=== PATIENT | female | born 1965 | race Caucasian/White ===

== ENCOUNTER 2017-03-13 03:40 | Emergency (ER) | payer SELFPAY ==
[~2017-03-13] VITALS: Ht 160 cm; Wt 73.0 kg
[2017-03-13 03:46] VITALS: Ht 160 cm; Wt 73.0 kg
--- NOTE | 2017-03-13 04:38 | ERD ---
ER Documentation Chief Complaint Chief Complaint left breast pain x 2 hours HPI Otherwise healthy 51-year-old female presents with a chief complaint of left breast pain at 2 hours. No similar symptoms in the past. Last menstrual period at times a 5-7 years ago. Denies discharge, fever, chills, aggravating or alleviating factors. Has not taken any medications to relieve the symptoms. Patient has no other complaints and describes no other associated manifestations. Nursing notes have been reviewed and are consistent with history given. ROS All systems reviewed and are negative except as per history of present illness. Allergies Allergies: Coded Allergies: No Known Drug Allergies (Verified Allergy, Unknown, 03/13/17) PMhx/Soc Medical and Surgical Hx: pt denies Medical Hx History of Surgery: Yes (breast cyst removal per pt) Anesthesia Reaction: No Hx Neurological Disorder: No Hx Respiratory Disorders: No Hx Cardiac Disorders: No Hx Psychiatric Problems: No Hx Miscellaneous Medical Probl: No Hx Alcohol Use: No Hx Substance Use: No Hx Tobacco Use: No Smoking Status: Never smoker Physical Exam Vitals Vital Signs Date Time Temp Pulse Resp B/P Pulse Ox O2 Delivery O2 Flow Rate FiO2 03/13/17 03:46 97.0 67 20 114/74 99 Physical Exam Const: Well-appearing 51-year-old female no acute distress. Head: Atraumatic Eyes: Normal Conjunctiva ENT: Normal External Ears, Nose and Mouth. Neck: Full range of motion..~ No meningismus. Resp: Clear to auscultation bilaterally Cardio: Regular rate and rhythm, no murmurs Neur: Awake and alert Psych: Normal Mood and Affect Breast exam: Mild tenderness just medial and inferior to the left areole. No discrete masses identified. Waste Baler was [place]. No discharge, induration, skin changes. Procedures/MDM 51-year-old female presenting with a chief complaint of a left breast pain at times a 2 hours as described in history and physical examination. There are no signs warrants any imaging at this time. Most likely diagnosis is fibroadenoma versus fibrocystic disease. I have little suspicion for cancer at this time. I have recommended outpatient mammogram/ultrasound. Waste Baler for breast exam was monitored by the RN. I have spoke with the patient regarding their condition and future management. They have verbally responded that they understand their status and treatment plan. The patients vitals are stable, and their current condition is appropriate for discharge. The patient will be given discharge instructions with return precautions. Departure Diagnosis: Primary Impression: Breast pain Condition: Stable Patient Instructions: Breast Mass, Uncertain Cause Additional Instructions: Follow up with your PCP within the next 1-3 days for a more thorough evaluation and a possible referral to a specialist. Return the the emergency department immediately if symptoms worsen or change. If you have any questions regarding medications, ask your pharmacist or us before you leave. If any adverse reactions occur while taking your medications, discontinue the treatment and return to the emergency department immediately. Take your medications as directed, and complete the entire course of treatment. JAZZY LEIVA PA-C Mar 13, 2017 04:38
== END 2017-03-13 04:39 | disposition home or self-care (01) ==
LOC: FTE 03:40
DX: N64.4 Mastodynia (principal)
CPT/HCPCS: 99282